=== PATIENT | female | born 1940 | race Caucasian/White ===

== ENCOUNTER 2024-01-20 08:29 | Day surgery (SDC) | payer OTHER, BC ==
[2024-01-18 13:46] VITALS: BMI 24.1
[2024-01-20] MEDS ORDERED: DEXMEDETOMIDINE HCL 200 MCG/2 ML IVPB ONE (10:01)
[2024-01-20] MEDS ORDERED: PROPOFOL 20 ML ONE (10:12)
[2024-01-20] MEDS ORDERED: LIDOCAINE HCL 1%, 10 MG/ML (20ML VIAL) ONE ×2 (10:13→10:20)
[2024-01-20] MEDS ORDERED: BUPIVACAINE HCL/PF 0.5% (5MG/ML) 10 ML VIAL ONE ×2 (10:14→10:20)
[2024-01-20] MEDS ORDERED: LACTATED RINGERS SOLUTION 1,000 ML IV SCH (11:00)
[2024-01-20 13:14] VITALS: RESP 20
[2024-01-20 13:33] VITALS: BP 155/64; PULSE 54; TEMP 97
== END 2024-01-20 13:00 | disposition home or self-care (01) ==
LOC: FASU 08:29
PROVIDERS: ATTEND Surgery Vascular Surgery
PROC: 0JBP0ZZ Excision of Left Lower Leg Subcutaneous Tissue and Fascia, Open Approach (ICD-10-PCS; 2024-01-20)
PROC: 0JXP0ZC Transfer Left Lower Leg Subcutaneous Tissue and Fascia with Skin, Subcutaneous Tissue and Fascia, Open Approach (ICD-10-PCS; principal; 2024-01-20 10:35)
DX: C44.729 Squamous cell carcinoma of skin of left lower limb, including hip (principal)
CPT/HCPCS: 88305-TC; 93005; 94760